=== PATIENT | female | born 1985 | race Caucasian/White ===

== ENCOUNTER 2019-09-05 18:59 | Emergency (ER) | payer OTHER ==
[~2019-09-05] VITALS: Ht 157.5 cm; Wt 84.1 kg
[~2019-09-05 18:59] MED LIST: ACYCLOVIR200 MG PO; ATOXIMETIN-B1 CAP PO; DEMEROL 50M50 MG/TAB PO; DOXYCYCLINE 10100 MG PO; FLINTSTONES1 CTB PO; LORTAB 5/500 501 TAB PO; METFORMIN850 MG PO; METRONIDAZOLE500 MG PO; MOTRIN 600600 MG/TAB PO; MOTRIN800 MG PO; NO HOME MEDICATIONS; NORCO 325 MG-51 TAB PO; NORCO 325 MG-7.1 TAB PO; PERCOCET 325 MG1 TA2 PO; PHENERGAN 25 TA25 MG PO; PHENERGAN25 MG RC; PREDNISONE10 MG PO; PRENATAL1 TA1 PO; SENOKOT S 50 MG1 TAB PO; SLOW FE45 MG; VICODIN 5/5001 UDTAB PO; WELLBUTRIN 100100 MG PO; ZITHROMAX 250M250 MG PO; ZITHROMAX Z PA250 MG PO; ZOFRAN 4MG T4 MG/TAB PO
[2019-09-05 20:13] VITALS: BP 122/71; PULSE 78; TEMP 98.1
== END 2019-09-05 20:25 | disposition home or self-care (01) ==
LOC: COL.ER 18:59
DX: S46.811A Strain of other muscles, fascia and tendons at shoulder and upper arm level, right arm, initial encounter (principal); K58.9 Irritable bowel syndrome, unspecified; F17.210 Nicotine dependence, cigarettes, uncomplicated; X50.0XXA Overexertion from strenuous movement or load, initial encounter; Y92.410 Unspecified street and highway as the place of occurrence of the external cause

== ENCOUNTER → 2019-11-27 | Outpatient (CLI) | payer OTHER | LOC: COL.RAD 12:20 | DX: R10.2 Pelvic and perineal pain (principal) ==

== ENCOUNTER 2020-08-28 10:31 | Emergency (ER) | payer OTHER ==
[~2020-08-28] VITALS: Ht 157.5 cm; Wt 86.4 kg
[2020-08-28 10:39] VITALS: TEMP 98.6
[2020-08-28 11:34] VITALS: BP 126/71; PULSE 85
== END 2020-08-28 11:36 | disposition home or self-care (01) ==
LOC: COL.ER 10:31
DX: S49.92XA Unspecified injury of left shoulder and upper arm, initial encounter (principal); F17.210 Nicotine dependence, cigarettes, uncomplicated; Z90.49 Acquired absence of other specified parts of digestive tract; Z88.6 Allergy status to analgesic agent; Z79.52 Long term (current) use of systemic steroids; X50.0XXA Overexertion from strenuous movement or load, initial encounter; Y92.009 Unspecified place in unspecified non-institutional (private) residence as the place of occurrence of the external cause

== ENCOUNTER 2021-09-12 20:28 | Emergency (ER) | payer OTHER ==
[~2021-09-12] VITALS: Ht 157.5 cm; Wt 86.4 kg
[2021-09-12] MEDS ORDERED: MOTRIN 800800 MG/TAB PO (22:07)
[2021-09-12] MEDS ORDERED: CRUTCHES MC (22:45)
[2021-09-12 23:06] VITALS: BP 155/97; PULSE 79; TEMP 98.5
== END 2021-09-12 23:06 | disposition home or self-care (01) ==
LOC: COL.ER 20:28
DX: S93.401A Sprain of unspecified ligament of right ankle, initial encounter (principal); S53.402A Unspecified sprain of left elbow, initial encounter; S49.92XA Unspecified injury of left shoulder and upper arm, initial encounter; T43.205A Adverse effect of unspecified antidepressants, initial encounter; M72.2 Plantar fascial fibromatosis; X58.XXXA Exposure to other specified factors, initial encounter

== ENCOUNTER 2023-09-02 06:18 | Day surgery (SDC) | payer OTHER ==
[2023-09-02] VITALS (7 sets, daily range): BP systolic 147–156; BP diastolic 68–90; PULSE 66–81; TEMP 97.1–98
[~2023-09-02] VITALS: Ht 157.5 cm; Wt 86.7 kg
[~2023-09-02 06:18] MED LIST changes: +CRUTCHES MC; +FLOMAX 0.40.4 MG/CAP PO; +MOTRIN 800800 MG/TAB PO; +PROTONIX 40MG T40 MG PO; +TYLENOL 500MG500 MG PO
[2023-09-02] MEDS ORDERED: NORCO 325 MG-51 TAB PO (08:45)
--- NOTE | 2023-09-02 17:08 | NUR ---
[id number]: PT TO RECOVERY BAY 1 FROM PACU S/P CYSTO, L URETEROSCOPY, LASER ABLATION, STENT PLACEMENT A&O, PLACED ON MONITOR, VSS ON RA RECEIVED REPORT AND ASSUMED CARE OF PT FROM JEAN PAUL VASQUEZ SPOUSE AT BEDSIDE PROVIDED FOOD/FLUIDS, TOLERATING WELL STEADY GAIT TO AND FROM BR TO VOID. C/O 7/10 PAIN AROUND 1000, PALLIATED WELL WITH 2MG MOPRPHINE IVP PT HAS REMAINED A&O, NAD, VSS ON RA, TOLERATING PO, IS WITHOUT SIGNIFICANT COMPLAINT, WITH STEADY GAIT BY END OF STAY IV D/C'D. D/C INSTRUCTIONS, FOLLOW UP REVIEWED AND HANDED TO PT. ALL QUESTIONS AND CONCERNS ADDRESSED TO PT SATISFACTION. TAKEN TO EXIT VIA W/C WITH ALL BELONGINGS AND PAPERWORK IN HAND, ASSISTED INTO PASSENGER SEAT OF POV. SPOUSE TO DRIVE HOME.
== END 2023-09-02 10:45 | disposition home or self-care (01) ==
LOC: SDCO 06:18
DX: N20.0 Calculus of kidney (principal); F17.210 Nicotine dependence, cigarettes, uncomplicated
CPT/HCPCS: C1769; C2617; J0690; J1100; J2270; J2405; J2704; J3010; J7120